=== PATIENT | male | born 1955 | race Caucasian/White ===

== ENCOUNTER 2018-11-09 06:30 | Day surgery (SDC) | payer MEDICARE, OTHER ==
[2018-11-09] MEDS ORDERED: Midazolam 1 MG/ML 2 ML SDV IV ONE (06:31)
[2018-11-09] MEDS ORDERED: Propofol 200 MG/20 ML SDV IV ONE (06:31)
[2018-11-09] MEDS ORDERED: Lactated Ringers 1,000 ML IV SCH (06:45)
[2018-11-09] MEDS ORDERED: Sodium Chloride 0.9% 10 ML Syringe FLUSH PRN (06:45)
--- NOTE | 2018-11-09 08:40 | PCM.OPNOTE ---
- General Post-Op/Procedure Note Date of Surgery/Procedure: 11/09/18 Operative Procedure(s): c scope with bx Findings: cecal polyp incompletely removed splenic flexure x3 descending colon polyp sigmoid colon polyp x3 diverticulosis Pre Op Diagnosis: hx of colon polyps. llq abd pain Post-Op Diagnosis: cecal polyp incompletely removed. splenic flexure x3. descending colon polyp. sigmoid colon polyp x3. diverticulosis Primary Surgeon: Tad Banegas Anesthesia Provider: Anjelica Felix Pathology: cecal polyp incompletely removed splenic flexure x3 descending colon polyp sigmoid colon polyp x3 Complications: None Condition: Good Free Text/Narrative:: see dictation
--- NOTE | 2018-11-09 09:46 | OR ---
DATE OF OPERATION: 11/09/2018 SURGEON: Tad Banegas MD PROCEDURE PERFORMED: Colonoscopy with cold loop and cold forceps biopsy. PREOPERATIVE DIAGNOSIS: History of left-sided abdominal pain as well as diverticulosis and colon polyps. POSTOPERATIVE DIAGNOSIS: A polyp of the cecum, splenic flexure x3, descending colon, sigmoid colon x3. INDICATIONS FOR PROCEDURE: This is a 63-year-old white male who has a known history of adenomatous polyps. He has also been having some left-sided abdominal pain and has been treated for diverticulitis and pain persists. He was offered and accepted colonoscopy. PROCEDURE IN DETAIL: After an excellent IV sedation was administered, digital rectal exam was performed. No marked abnormality was noted. The flexible colonoscope was inserted and advanced to the cecum. The prep was excellent. The following findings were noted: In the cecum, there is a flat sessile- appearing polyp, I attempted to get a loop around it, we were unsuccessful. Multiple biopsies were taken to ascertain the pathologic diagnosis. The remainder of the ascending colon was unremarkable. At the splenic flexure, there were 3 polyps, 2 of them were retrieved by biopsy, then obliterated by cold forceps biopsy. Additional was biopsied with cold loop snare and sent for permanent. The remainder of the transverse colon was unremarkable. Descending colon, polypoid lesion, biopsied with cold biopsy forceps and sent for permanent. In the sigmoid, there were 3 hyperplastic-appearing lesions which were biopsied and submitted in one container. The rectum was unremarkable. The colon was deflated and the scope was removed. The patient will follow up in my office in 7-10 days to discuss results. /[id number] /MODL
== END 2018-11-09 09:45 | disposition home or self-care (01) ==
LOC: FB.SDS 06:30
PROVIDERS: ATTEND Surgery
DX: R10.32 Left lower quadrant pain (principal); D12.0 Benign neoplasm of cecum; D12.3 Benign neoplasm of transverse colon; K63.5 Polyp of colon; E11.36 Type 2 diabetes mellitus with diabetic cataract; F17.210 Nicotine dependence, cigarettes, uncomplicated; E78.00 Pure hypercholesterolemia, unspecified; Z86.010 Personal history of colon polyps; Z87.19 Personal history of other diseases of the digestive system; Z79.4 Long term (current) use of insulin; Z79.82 Long term (current) use of aspirin; Z79.899 Other long term (current) drug therapy
CPT/HCPCS: 00811; 45380; 45385; 82962; 88305; J2250; J2704; J7120

== ENCOUNTER 2019-01-17 07:25 | Day surgery (SDC) | payer MEDICARE, OTHER ==
[2019-01-17] MEDS ORDERED: Propofol 200 MG/20 ML SDV IV ONE (07:26)
[2019-01-17] MEDS ORDERED: Midazolam 1 MG/ML 2 ML SDV IV ONE (07:26)
[2019-01-17] MEDS ORDERED: Lactated Ringers 1,000 ML IV SCH (07:30)
--- NOTE | 2019-01-17 09:53 | PCM.OPNOTE ---
- General Post-Op/Procedure Note Date of Surgery/Procedure: 01/17/19 Operative Procedure(s): c scope Findings: cecal polyp Pre Op Diagnosis: cecal polyp Post-Op Diagnosis: same Anesthesia Technique: MAC Primary Surgeon: Tad Banegas Anesthesia Provider: Anjelica Felix Pathology: cecal polyp Complications: None Condition: Good Free Text/Narrative:: see dictation
--- NOTE | 2019-01-17 10:08 | PREOP ---
ADMISSION DATE: 01/17/2019 CHIEF COMPLAINT: Cecal polyp. HISTORY OF PRESENT ILLNESS: This is a 63-year-old white male who 2 months ago underwent a colonoscopy. He had a cecal polyp that we were questioning whether we had completely removed it. He presents now for followup endoscopy to ensure complete removal of the cecal polyp. SOCIAL HISTORY: The patient smokes. Denies any alcohol use. PAST MEDICAL HISTORY: Significant for diabetes mellitus, hyperlipidemia, hypertension, and colon polyps. PAST SURGICAL HISTORY: Significant for bilateral laminectomy, colonoscopy, tendon repair, and teeth extraction. MEDICATIONS: 1. Valium 5 mg as needed for muscle spasm. 2. NovoLog Mix 70/30 subcu pen 48 units in the a.m., 32 units in the p.m. 3. Humalog mix 75/25, 24 units q.a.m. and 12 units at supper. 4. Lisinopril 10 mg half tablet daily. 5. Zocor 40 mg daily. 6. Full-strength aspirin daily. REVIEW OF SYSTEMS: Essentially noncontributory. PHYSICAL EXAMINATION: GENERAL: The patient appears to be well-developed, well- nourished, no acute distress. HEENT: Grossly within normal limits. LUNGS: Clear to auscultation. HEART: Had a regular rate and rhythm. ABDOMEN: Soft, nontender. ASSESSMENT: Cecal polyp. PLAN: Colonoscopy. Procedure and risks explained to the patient to include bleeding, infection, perforation. The patient expresses understanding and he asked us to proceed. /[id number] /MODL
--- NOTE | 2019-01-17 14:56 | OR ---
DATE OF OPERATION: 01/17/2019 SURGEON: Tad Banegas MD PROCEDURE PERFORMED: Colonoscopy with biopsy of cecal polyp. PREOPERATIVE DIAGNOSIS: History of cecal polyp. POSTOPERATIVE DIAGNOSIS: History of cecal polyp. INDICATIONS FOR PROCEDURE: This is a 63-year-old white male who had a colonoscopy several months ago. He had a partially removed cecal polyp. He presents now to see if we can get the remainder of the polyp out. DESCRIPTION OF OPERATION: After an excellent IV sedation was administered, digital rectal exam was performed. No marked abnormality was noted. Flexible colonoscope was inserted and advanced to the cecum. Remnant of the polyp was encountered. Multiple attempts to remove this by loop snare and cold forceps biopsies were not successful due to the way it laid on the fold of the colon. We did get some samples to confirm the tissue diagnosis. Scope was removed. The patient tolerated the procedure well and was taken to recovery. Results by letter. /[id number] /MODL
== END 2019-01-17 11:00 | disposition home or self-care (01) ==
LOC: FB.SDS 07:25
PROVIDERS: ATTEND Surgery
DX: D12.0 Benign neoplasm of cecum (principal); I25.10 Atherosclerotic heart disease of native coronary artery without angina pectoris; I10 Essential (primary) hypertension; E11.9 Type 2 diabetes mellitus without complications; E78.00 Pure hypercholesterolemia, unspecified; K21.9 Gastro-esophageal reflux disease without esophagitis; F17.210 Nicotine dependence, cigarettes, uncomplicated; Z86.010 Personal history of colon polyps; Z79.4 Long term (current) use of insulin; Z79.82 Long term (current) use of aspirin; Z79.899 Other long term (current) drug therapy
CPT/HCPCS: 00811; 45385; 82962; 88305; J2250; J2704; J7120

== ENCOUNTER 2019-06-13 13:57 | Emergency (ER) | payer MEDICARE, OTHER ==
--- NOTE | 2019-06-13 14:30 | EDM.PDOC ---
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, 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, ate bfast at 8 AM, had 10 oz coffee at 5 AM, drank H2O and milk this AM, was getting ready to go outside to mow grass when palpitations not seen cardiology in past 3y, had EST locally 4-5y ago but "leg gave out" and had chemical stress test in [place] that was neg smoked 1 ppd x 50y, stills smokes PMH: htn, DM, inc'd lipids, smoker has had pain in calves when walks 50 yards and needs to stop and rest, u/s of LEs done at [facility] yesterday no sxs here - Related Data Allergies Allergy/AdvReac Type Severity Reaction Status Date / Time metformin Allergy Fatigue Verified 06/13/19 14:43 Home Meds: Home Meds Aspirin 325 mg PO DAILY 11/08/18 [History] Cholecalciferol (Vitamin D3) [Vitamin D3] 2,000 unit PO DAILY 11/08/18 [History] Insuln Asp Prot/Insulin Aspart [NovoLOG Mix 70-30] 45 unit SQ 0800 11/08/18 [ History] Insuln Asp Prot/Insulin Aspart [NovoLOG Mix 70-30] 47 unit SQ 1800 11/08/18 [ History] Lisinopril 5 mg PO DAILY 11/08/18 [History] Multivit-Min/FA/Lycopene/Lut [Centrum Silver Ultra Men's] 1 each PO DAILY [History] Simvastatin [Zocor] 40 mg PO BEDTIME 11/08/18 [History] diazePAM [Valium] 5 mg PO BEDTIME PRN 11/08/18 [History] Acetaminophen 1,000 mg PO Q6HR PRN 01/16/19 [History] metFORMIN HCl [Metformin HCl ER] 500 mg PO BID 06/13/19 [History] Past Medical History HEENT History: Reports: Cataract, Impaired Vision Cardiovascular History: Reports: High Cholesterol, Hypertension Respiratory History: Reports: Bronchitis, Recurrent, SOB Gastrointestinal History: Reports: GERD, Hemorrhoids Other Gastrointestinal History: DYSPEPSIA D/T NSAIDS Genitourinary History: Reports: None Musculoskeletal History: Reports: Other (See Below) Other Musculoskeletal History: HX OF KNEE SPRAIN Neurological History: Reports: None Psychiatric History: Reports: None Endocrine/Metabolic History: Reports: Diabetes, Type II Hematologic History: Reports: None Immunologic History: Reports: None Oncologic (Cancer) History: Reports: None Dermatologic History: Reports: None - Infectious Disease History Infectious Disease History: Reports: Chicken Pox, Measles - Past Surgical History HEENT Surgical History: Reports: Oral Surgery GI Surgical History: Reports: Colonoscopy Neurological Surgical History: Reports: Laminectomy Musculoskeletal Surgical History: Reports: Other (See Below) Other Musculoskeletal Surgeries/Procedures:: TENDON REPAIR TRANSFER (RIGHT) Social & Family History - Family History Family Medical History: Noncontributory - Caffeine Use Caffeine Use: Reports: Coffee ED ROS GENERAL - Review of Systems Review Of Systems: See Below Constitutional: Reports: No Symptoms HEENT: Reports: No Symptoms Respiratory: Reports: No Symptoms Cardiovascular: Reports: Palpitations. Denies: Chest Pain, Dyspnea on Exertion , Edema, Lightheadedness Endocrine: Reports: No Symptoms GI/Abdominal: Reports: No Symptoms : Reports: No Symptoms Musculoskeletal: Reports: Other (leg pain) Skin: Reports: No Symptoms Neurological: Reports: No Symptoms Psychiatric: Reports: No Symptoms Hematologic/Lymphatic: Reports: No Symptoms Immunologic: Reports: No Symptoms ED EXAM, GENERAL - Physical Exam Exam: See Below Exam Limited By: No Limitations General Appearance: Alert, WD/WN, No Apparent Distress Eye Exam: Bilateral Eye: EOMI, PERRL Ears: Normal External Exam, Hearing Grossly Normal Nose: Normal Inspection, Normal Mucosa, No Blood Throat/Mouth: Normal Inspection, Normal Lips, Normal Oropharynx, Normal Voice, No Airway Compromise Head: Atraumatic, Normocephalic Neck: Normal Inspection, Supple, Non-Tender, Full Range of Motion. No: Lymphadenopathy (R), Lymphadenopathy (L) Respiratory/Chest: No Respiratory Distress, Lungs Clear, Normal Breath Sounds, No Accessory Muscle Use, Chest Non-Tender Cardiovascular: Regular Rate, Rhythm, No Edema, No Gallop, No JVD, No Murmur, No Rub GI/Abdominal: Soft, Non-Tender, No Distention Back Exam: Normal Inspection, Full Range of Motion, NT Extremities: Normal Inspection, Normal Range of Motion, Non-Tender, No Pedal Edema Neurological: Alert, Oriented, CN II-XII Intact, Normal Cognition, No Motor/ Sensory Deficits Psychiatric: Normal Affect, Normal Mood Skin Exam: Warm, Dry, Intact, Normal Color, No Rash Lymphatic: No Adenopathy Course - Vital Signs Last Recorded V/S: Last Vital Signs Temp 36.2 C 06/13/19 14:10 Pulse 101 H 06/13/19 14:00 Resp 24 H 06/13/19 14:00 BP 139/55 L 06/13/19 14:00 Pulse Ox 97 06/13/19 14:00 - Orders/Labs/Meds Labs: Laboratory Tests 06/13/19 06/13/19 06/13/19 Range/Units 14:28 14:30 14:30 WBC 7.2 (4.5-12.0) X10-3/uL RBC 5.44 (4.30-5.75) x10(6)uL Hgb 17.0 (13.5-17.8) g/dL Hct 50.6 (30.0-51.3) % MCV 93.0 (80-96) fL MCH 31.3 (27.7-33.6) pg MCHC 33.7 (32.2-35.4) g/dL RDW 13.1 (11.5-15.5) % Plt Count 194 (125-369) X10(3)uL MPV 9.2 (7.4-10.4) fL Neut % (Auto) 66.9 (46-82) % Lymph % (Auto) 14.8 (13-37) % [place] % (Auto) 7.5 (4-12) % Eos % (Auto) 10 H (1.0-5.0) % Baso % (Auto) 1 (0-2) % Neut # (Auto) 4.8 (1.6-8.3) # Lymph # (Auto) 1.1 (0.6-5.0) # [place] # (Auto) 0.5 (0.0-1.3) # Eos # (Auto) 0.7 (0.0-0.8) # Baso # (Auto) 0.1 (0.0-0.2) # D-Dimer, Quantitative 0.49 (0.0-0.59) mg/LFEU Sodium (135-145) mmol/L Potassium (3.5-5.3) mmol/L Chloride (100-110) mmol/L Carbon Dioxide (21-32) mmol/L BUN (7-18) mg/dL Creatinine (0.70-1.30) mg/dL Est Cr Clr Drug Dosing mL/min Estimated GFR (MDRD) (>60) BUN/Creatinine Ratio (9-20) Glucose (80-116) mg/dL Calcium (8.6-10.2) mg/dL Magnesium (1.8-2.5) mg/dL Total Bilirubin (0.1-1.3) mg/dL AST (5-25) IU/L ALT (12-36) U/L Alkaline Phosphatase (56-112) IU/L Troponin I (<0.017-0.056) ng/mL C-Reactive Protein (0.5-0.9) mg/dL Total Protein (6.0-8.0) g/dL Albumin (3.2-4.6) g/dL Globulin g/dL Albumin/Globulin Ratio TSH, Ultra Sensitive (0.36-3.74) IU/mL Urine Color Yellow (YELLOW) Urine Appearance Clear (CLEAR) Urine pH 7.0 H (5.0-6.5) Ur Specific [place] 1.010 (1.010-1.025) Urine Protein Negative (NEGATIVE) mg/dL Urine Glucose (UA) >1000 H (NORMAL) mg/dL Urine Ketones Negative (NEGATIVE) mg/dL Urine Occult Blood Negative (NEGATIVE) Urine Nitrite Negative (NEGATIVE) Urine Bilirubin Negative (NEGATIVE) Urine Urobilinogen Normal (NEGATIVE) mg/dL Ur Leukocyte Esterase Negative (NEGATIVE) Urine RBC 0-5 (0-5) Urine WBC 0-5 (0-5) Ur Squamous Epith Cells Occasional (NS,R,O) Urine Bacteria Few H (NS) 06/13/19 06/13/19 06/13/19 Range/Units 14:30 14:30 14:30 WBC (4.5-12.0) X10-3/uL RBC (4.30-5.75) x10(6)uL Hgb (13.5-17.8) g/dL Hct (30.0-51.3) % MCV (80-96) fL MCH (27.7-33.6) pg MCHC (32.2-35.4) g/dL RDW (11.5-15.5) % Plt Count (125-369) X10(3)uL MPV (7.4-10.4) fL Neut % (Auto) (46-82) % Lymph % (Auto) (13-37) % [place] % (Auto) (4-12) % Eos % (Auto) (1.0-5.0) % Baso % (Auto) (0-2) % Neut # (Auto) (1.6-8.3) # Lymph # (Auto) (0.6-5.0) # [place] # (Auto) (0.0-1.3) # Eos # (Auto) (0.0-0.8) # Baso # (Auto) (0.0-0.2) # D-Dimer, Quantitative (0.0-0.59) mg/LFEU Sodium 141 (135-145) mmol/L Potassium 4.5 (3.5-5.3) mmol/L Chloride 103 (100-110) mmol/L Carbon Dioxide 31 (21-32) mmol/L BUN 17 (7-18) mg/dL Creatinine 0.7 (0.70-1.30) mg/dL Est Cr Clr Drug Dosing 101.79 mL/min Estimated GFR (MDRD) > 60 (>60) BUN/Creatinine Ratio 24.3 H (9-20) Glucose 179 H (80-116) mg/dL Calcium 8.9 (8.6-10.2) mg/dL Magnesium 1.8 (1.8-2.5) mg/dL Total Bilirubin 0.2 (0.1-1.3) mg/dL AST 19 (5-25) IU/L ALT 30 (12-36) U/L Alkaline Phosphatase 95 (56-112) IU/L Troponin I 0.036 (<0.017-0.056) ng/mL C-Reactive Protein 0.5 (0.5-0.9) mg/dL Total Protein 6.8 (6.0-8.0) g/dL Albumin 3.4 (3.2-4.6) g/dL Globulin 3.4 g/dL Albumin/Globulin Ratio 1.0 TSH, Ultra Sensitive (0.36-3.74) IU/mL Urine Color (YELLOW) Urine Appearance (CLEAR) Urine pH (5.0-6.5) Ur Specific [place] (1.010-1.025) Urine Protein (NEGATIVE) mg/dL Urine Glucose (UA) (NORMAL) mg/dL Urine Ketones (NEGATIVE) mg/dL Urine Occult Blood (NEGATIVE) Urine Nitrite (NEGATIVE) Urine Bilirubin (NEGATIVE) Urine Urobilinogen (NEGATIVE) mg/dL Ur Leukocyte Esterase (NEGATIVE) Urine RBC (0-5) Urine WBC (0-5) Ur Squamous Epith Cells (NS,R,O) Urine Bacteria (NS) 06/13/19 Range/Units 14:30 WBC (4.5-12.0) X10-3/uL RBC (4.30-5.75) x10(6)uL Hgb (13.5-17.8) g/dL Hct (30.0-51.3) % MCV (80-96) fL MCH (27.7-33.6) pg MCHC (32.2-35.4) g/dL RDW (11.5-15.5) % Plt Count (125-369) X10(3)uL MPV (7.4-10.4) fL Neut % (Auto) (46-82) % Lymph % (Auto) (13-37) % [place] % (Auto) (4-12) % Eos % (Auto) (1.0-5.0) % Baso % (Auto) (0-2) % Neut # (Auto) (1.6-8.3) # Lymph # (Auto) (0.6-5.0) # [place] # (Auto) (0.0-1.3) # Eos # (Auto) (0.0-0.8) # Baso # (Auto) (0.0-0.2) # D-Dimer, Quantitative (0.0-0.59) mg/LFEU Sodium (135-145) mmol/L Potassium (3.5-5.3) mmol/L Chloride (100-110) mmol/L Carbon Dioxide (21-32) mmol/L BUN (7-18) mg/dL Creatinine (0.70-1.30) mg/dL Est Cr Clr Drug Dosing mL/min Estimated GFR (MDRD) (>60) BUN/Creatinine Ratio (9-20) Glucose (80-116) mg/dL Calcium (8.6-10.2) mg/dL Magnesium (1.8-2.5) mg/dL Total Bilirubin (0.1-1.3) mg/dL AST (5-25) IU/L ALT (12-36) U/L Alkaline Phosphatase (56-112) IU/L Troponin I (<0.017-0.056) ng/mL C-Reactive Protein (0.5-0.9) mg/dL Total Protein (6.0-8.0) g/dL Albumin (3.2-4.6) g/dL Globulin g/dL Albumin/Globulin Ratio TSH, Ultra Sensitive 2.20 (0.36-3.74) IU/mL Urine Color (YELLOW) Urine Appearance (CLEAR) Urine pH (5.0-6.5) Ur Specific [place] (1.010-1.025) Urine Protein (NEGATIVE) mg/dL Urine Glucose (UA) (NORMAL) mg/dL Urine Ketones (NEGATIVE) mg/dL Urine Occult Blood (NEGATIVE) Urine Nitrite (NEGATIVE) Urine Bilirubin (NEGATIVE) Urine Urobilinogen (NEGATIVE) mg/dL Ur Leukocyte Esterase (NEGATIVE) Urine RBC (0-5) Urine WBC (0-5) Ur Squamous Epith Cells (NS,R,O) Urine Bacteria (NS) Departure - Departure Time of Disposition: 15:30 Disposition: DC/Tfer to Acute Hospital 02 Reason for Transfer *Q: Other Clinical Impression: Paroxysmal supraventricular tachycardia, Diabetes mellitus with hyperglycemia, Eosinophilia, Current smoker, Claudication Referrals: Freddy French MD [Primary Care Provider] - Forms: ED Department Discharge
== END 2019-06-13 16:35 ==
LOC: FB.ED 13:57
DX: I47.1 Supraventricular tachycardia (principal); E11.65 Type 2 diabetes mellitus with hyperglycemia; I73.9 Peripheral vascular disease, unspecified; D72.1 Eosinophilia; F17.210 Nicotine dependence, cigarettes, uncomplicated; I10 Essential (primary) hypertension; E78.00 Pure hypercholesterolemia, unspecified; Z88.8 Allergy status to other drugs, medicaments and biological substances; Z79.82 Long term (current) use of aspirin; Z79.4 Long term (current) use of insulin; Z79.899 Other long term (current) drug therapy
CPT/HCPCS: 36415; 80053; 81001; 83735; 84443; 84484; 85025; 85379; 86140; 93005; 99285-25

== ENCOUNTER 2019-10-25 07:18 | Day surgery (SDC) | payer MEDICARE, OTHER ==
[~2019-10-25 07:18] MED LIST: Lactated Ringers 1,000 ML IV SCH
[2019-10-25] MEDS ORDERED: Lidocaine 1% PF 2 ML SDV INJECT ONE (07:19)
[2019-10-25] MEDS ORDERED: Propofol 200 MG/20 ML SDV IV ONE (07:19)
--- NOTE | 2019-10-25 09:51 | PCM.OPNOTE ---
- General Post-Op/Procedure Note Date of Surgery/Procedure: 10/25/19 Operative Procedure(s): c scope with bx Findings: cecal polyp Pre Op Diagnosis: history of cecal polyp Post-Op Diagnosis: cecal polyp Anesthesia Technique: INEZ Primary Surgeon: Tad Banegas Anesthesia Provider: Freddy Rice Pathology: cecal polyp Complications: None Condition: Good Free Text/Narrative:: see dictation
--- NOTE | 2019-10-25 16:04 | OR ---
DATE OF OPERATION: 10/25/2019 SURGEON: aTd Banegas MD PROCEDURE PERFORMED: Hot loop snare biopsy of cecal polyp. PREOPERATIVE DIAGNOSIS: Personal history of colon polyp of the cecum. POSTOPERATIVE DIAGNOSIS: Cecal polyp. INDICATIONS FOR PROCEDURE: This is a 64-year-old white male, who earlier last year underwent a screening colonoscopy, had a polyp of the cecum that was incompletely excised, recommended a followup in 6 months for a repeat colonoscopy. He presents now for this procedure. DESCRIPTION OF OPERATION: After an excellent IV sedation was administered, digital rectal exam was performed. No marked abnormality was noted. Flexible colonoscope was inserted and advanced to the cecum. The prep was adequate. Following findings were noted. In the cecum, there was still some residual adenoma present. The bulk of it was biopsied with hot loop snare and then we did fulgurate the edges appearing to get the remainder of the adenoma. The remainder of the ascending colon was unremarkable. Transverse colon was unremarkable. Descending colon, unremarkable. Sigmoid and rectum, unremarkable. Colon was deflated. The scope was removed. Results will be sent to the patient by letter. /[id number] /MODL
== END 2019-10-25 10:47 | disposition home or self-care (01) ==
LOC: FB.SDS 07:18
PROVIDERS: ATTEND Surgery
DX: D12.0 Benign neoplasm of cecum (principal); E11.9 Type 2 diabetes mellitus without complications; E78.49 Other hyperlipidemia; Z79.4 Long term (current) use of insulin; Z79.82 Long term (current) use of aspirin; Z79.899 Other long term (current) drug therapy
CPT/HCPCS: 45380; 82962; J2001; J2704; J7120; 00811-QZ; 88305